=== PATIENT | male | born 1985 | race Asian ===

== ENCOUNTER 2024-03-25 01:10 | Inpatient (IN) | payer MEDICAID ==
[~2024-03-25] VITALS: Ht 162.6 cm; Wt 77.1 kg
[2024-03-25 02:53] LABS: BASOPHILS # (AUTO) 0.1 K/uL (0.0-0.2); BASOPHILS % (AUTO) 0.8 % (0.0-2.0); EOSINOPHILS # (AUTO) 0.2 K/uL (0.0-0.7); EOSINOPHILS % (AUTO) 2.4 % (0.0-6.0); HEMATOCRIT 49 % (39-51); HEMOGLOBIN 16.5 g/dL (13.5-17.5); LYMPHOCYTES # (AUTO) 2.1 K/uL (0.8-4.8); LYMPHOCYTES % (AUTO) 23.1 % (20.0-44.0); MEAN CORPUSCULAR HEMOGLOBIN 31 PG (26.0-33.0); MEAN CORPUSCULAR HGB CONC 34 g/dl (31.0-36.0); MEAN CORPUSCULAR VOLUME 90 fL (80-96); MONOCYTES # (AUTO) 0.7 K/uL (0.1-1.30); MONOCYTES % (AUTO) 7.7 % (2.0-12.0); PLATELET COUNT (AUTO) 257 K/uL (150-450); RED CELL DISTRIBUTION WIDTH 13.2 % (11.5-15.0)
[2024-03-25] MEDS ORDERED: IOHEXOL-350 100 ML VIAL IV ONE (03:13)
[2024-03-25] MEDS ORDERED: IV NS 0.9% 250 ML IV ONE (03:13)
[2024-03-25] MEDS ORDERED: CT SWABBABLE VALVE TRANS SET 1 EA INFUS.SET MC ONE (03:13)
[2024-03-25 03:17] LABS: ALANINE AMINOTRANSFERASE 18 U/L (12-78); ALBUMIN 4.2 g/dL (3.4-5.0); ALKALINE PHOSPHATASE 72 U/L (46-116); ASPARTATE AMINOTRANSFERASE 19 U/L (15-37); BILIRUBIN,TOTAL 0.9 mg/dL (0.2-1.0); CARBON DIOXIDE 28 mmol/L (21-32); CHLORIDE 100 mmol/L (98-107); CREATININE 1.2 mg/dL (0.6-1.3); GLUCOSE 121 mg/dL (74-106); POTASSIUM 3.9 mmol/L (3.5-5.1); SODIUM SERUM 140 mmol/L (136-145); TOTAL PROTEIN, SERUM 7.8 g/dL (6.4-8.2); UREA NITROGEN, BLOOD 17 mg/dL (7-18)
[2024-03-25 03:25] LABS: ALCOHOL, BLOOD < 3 mg/dL (0-10)
--- NOTE | 2024-03-25 03:45 | NUR ---
pt returned from [place] via [facility]
--- NOTE | 2024-03-25 03:48 | NUR ---
urine specimen sent to lab
--- NOTE | 2024-03-25 05:13 | NUR ---
RECEIVED REPORT FROM CHELSEA Le
--- NOTE | 2024-03-25 05:15 | NUR ---
REPORT GIVEN TO MECHE WHITEHEAD
--- NOTE | 2024-03-25 05:27 | NUR ---
[facility]
--- NOTE | 2024-03-25 05:27 | NUR ---
RECEIVED PT BROUGHT BY TIFFANI. A/O X4. NO DISTRESS AND DISCOMFORT NOTED. ON ROOM AIR. NO SOB NOTED. IV ACCESS RAC 20G, INTACT. ALL SAFETY PRECAUTIONS IN PLACE: BED LOCKED AND IN LOWEST POSITION, SIDE RAILS UP X3, CALL LIGHT AND TABLE WITHIN REACH. WILL CONTINUE PLAN OF CARE.
[2024-03-25 05:43] VITALS: BP 168/92; TEMP 98.1; O2SAT 99
[2024-03-25] MEDS ORDERED: Z GUARD REMEDY 4 OZ OINT TP PRN (06:00)
[2024-03-25] MEDS ORDERED: ONDANSETRON HCL/PF 4 MG/2 ML VIAL IVP PRN (06:00)
[2024-03-25] MEDS ORDERED: MAGNESIUM HYDROXIDE 30 ML UDC PO PRN (06:00)
[2024-03-25] MEDS ORDERED: MAG HYDROX/AL HYDROX/SIMETH 30 ML UDC PO PRN (06:00)
--- NOTE | 2024-03-25 06:15 | NUR ---
TEXT DR. MERCADO FOR MRI APPROVAL.
--- NOTE | 2024-03-25 06:34 | NUR ---
MRI ON HOLD PER DR. MERCADO , HE WILL LET US KNOW.
--- NOTE | 2024-03-25 06:50 | NUR ---
RN CLOSING NOTE PT IN THE BED. A/O X4. NO DISTRESS AND DISCOMFORT NOTED. ON ROOM AIR. NO SOB NOTED. IV ACCESS RAC 20G, INTACT. PT IS AMBULATORY. BED LOCKED AND IN LOWEST POSITION, SIDE RAILS UP X3, CALL LIGHT AND TABLE WITHIN REACH. WILL ENDORSE TO NEXT SHIFT NURSE FOR JONG.
--- NOTE | 2024-03-25 07:20 | NUR ---
SKOOG OPERATOR OPENING NOTES Received pt awake in bed. AOX4 with no complaints of pain or discomfort at this time. No slurring of the speech noted at this time. Extremities are within normal limits. Facial muscles are symmetric with no drooping noted. Eyes are tracking with the right eye unable to look over to the right side. Pt is on room air and tolerating it well. IV access on RAC 20G patent and intact saline lock. HOB elevated to pts comfort. Siderails up at all times x2. Bed locked and at its lowest height for safety. Call light within reach. Care is on Addendum: 03/25/24 at 0807 by BURTON ZAPIEN LVN error in charting. *Care is ongoing.
[2024-03-25 07:21] LABS: APPEARANCE,URINE CLEAR (CLEAR); BILIRUBIN,URINE NEGATIVE (NEGATIVE); BLOOD, URINE NEGATIVE Ery/uL (NEGATIVE); COLOR,URINE YELLOW (YELLOW); KETONES,URINE NEGATIVE (NEGATIVE); LEUKOCYTE ESTERASE ,URINE NEGATIVE (NEGATIVE); NITRITE, URINE NEGATIVE (NEGATIVE); PROTEIN,URINE NEGATIVE (NEGATIVE); UGLUCOSE NEGATIVE (NEGATIVE); UROBILINOGEN,URINE 0.2 EU/dL (0.2)
[2024-03-25 07:26] LABS: BASOPHILS # (AUTO) 0.1 K/uL (0.0-0.2); EOSINOPHILS # (AUTO) 0.1 K/uL (0.0-0.7); EOSINOPHILS % (AUTO) 1.7 % (0.0-6.0); HEMATOCRIT 46 % (39-51); HEMOGLOBIN 15.8 g/dL (13.5-17.5); LYMPHOCYTES # (AUTO) 1.3 K/uL (0.8-4.8); LYMPHOCYTES % (AUTO) 17.2 % (20.0-44.0); MEAN CORPUSCULAR HEMOGLOBIN 31 PG (26.0-33.0); MEAN CORPUSCULAR HGB CONC 34 g/dl (31.0-36.0); MEAN CORPUSCULAR VOLUME 89 fL (80-96); MONOCYTES # (AUTO) 0.6 K/uL (0.1-1.30); MONOCYTES % (AUTO) 7.7 % (2.0-12.0); NEUTROPHILS # (AUTO) 5.6 K/uL (1.8-8.9); NEUTROPHILS % (AUTO) 72.4 % (43.0-81.0); PLATELET COUNT (AUTO) 227 K/uL (150-450); RED BLOOD CELL COUNT(AUTO) 5.19 MIL/uL (4.5-6.0); RED CELL DISTRIBUTION WIDTH 13.1 % (11.5-15.0); WHITE BLOOD COUNT (AUTO) 7.8 K/uL (4.3-11.0)
[2024-03-25 08:00] VITALS: BP 119/77; TEMP 97.6; O2SAT 95
[2024-03-25 08:03] LABS: CALCIUM, SERUM 9.4 mg/dL (8.5-10.1); CREATININE 0.9 mg/dL (0.6-1.3); MAGNESIUM 2.1 mg/dL (1.8-2.4); POTASSIUM 3.9 mmol/L (3.5-5.1)
[2024-03-25] MEDS: ASPIRIN 81 MG TAB.CHEW PO SCH (08:19)
[2024-03-25] MEDS: CLOPIDOGREL BISULFATE 75 MG TABLET PO SCH (08:19)
[2024-03-25] MEDS: PANTOPRAZOLE 40 MG TABLET.DR PO SCH (08:19)
[2024-03-25 08:34] LABS: AMPHETAMINE, URINE NEGATIVE (NEGATIVE); BARBITURATE, URINE NEGATIVE (NEGATIVE); BENZODIAZEPINE, URINE NEGATIVE (NEGATIVE); CANNABINOID, URINE NEGATIVE (NEGATIVE); COCCAINE, URINE NEGATIVE (NEGATIVE); OPIATE, URINE NEGATIVE (NEGATIVE)
--- NOTE | 2024-03-25 08:35 | NUR ---
VICE INVESTIGATOR NOTES Nursing swallow eval done at bedside with HOB elevated to 90 degrees. Patient able to swallow with no trouble. Awaiting official swallow eval from speech therapist.
--- NOTE | 2024-03-25 08:37 | NUR ---
BRAKE REPAIRER RAILROAD NOTES Tolerated swallowing the medication and consumed breakfast without any issue.
[2024-03-25 08:45] LABS: PHENCYCLIDINE SCREEN,URINE NEGATIVE (NEGATIVE)
[2024-03-25 12:00] VITALS: BP 123/79; TEMP 98.2; O2SAT 98
[2024-03-25 12:09] LABS: THYROID STIMULATING HORMONE 3.63 uIU/mL (0.358-3.74)
--- NOTE | 2024-03-25 12:12 | NUR ---
PSYCHOLOGIST NOTES No VTE prophylaxis, score 0.
[2024-03-25] MEDS: LORAZEPAM 1 MG TABLET PO ONE (13:30)
[2024-03-25] MEDS ORDERED: GADOTERATE MEGLUMINE 10 MMOL/20 ML VIAL IV ONE (14:34)
[2024-03-25 16:00] VITALS: BP 138/80; TEMP 97.9; O2SAT 98
--- NOTE | 2024-03-25 18:40 | NUR ---
STAFFING DIRECTOR CLOSING NOTES All due meds and tx given as ordered. Pt tolerated everything well. All needs attended to. HOB elevated to pts comfort. Siderails up at all times x3. Bed locked and at its lowest height for safety. Called light within reach. Will endorse to oncoming nurse.
--- NOTE | 2024-03-25 19:00 | NUR ---
HAND METHOD LASTING MACHINE OPERATOR NOTES MRI results relayed to Simba Calderon NP. Made him aware that patient family at bedside and stated patient had a fall last week from a 7 foot high machine and landed on his butt. New order for STAT CT of cervical spine. Noted and carried out.
--- NOTE | 2024-03-25 19:45 | NUR ---
RN OPENING NOTES RECEIVED PT IN BED, AWAKE, ALERT/ORIENTED X4 AND VERBALLY RESPONSIVE. FAMILY AT BEDSIDE. ON ROOM AIR AND PT TOLERATED WELL. CARDIAC MONITORING SHOWS SINUS RHYTHM, HR OF 95. IV ACCESS ON RAC#20G INTACT AND PATENT. NO S/S OF INFILTRATIONS. NO C/O PAIN OR DISCOMFORT. NO ACUTE DISTRESS. PT HAS BLACK PATCH ON HIS RIGHT EYE. ABLE TO MOVE ALL THE EXTREMITIES. ALL SAFETY MEASURES IN PLACE. BED IN LOWEST POSITION AND LOCKED, SIDE RAILS UP X2, PLACE CALL LIGHT WITH IN REACH. WILL CONTINUE TO MONITOR
[2024-03-25 20:00] VITALS: BP 136/93; TEMP 98.6; O2SAT 98
--- NOTE | 2024-03-25 20:18 | NUR ---
RN NOTES: TOOK PT TO CT FOR CT OF THE SPINE AND BROUGHT THE PT BACK
[2024-03-25] MEDS: ATORVASTATIN 40 MG TABLET PO SCH (22:17)
[2024-03-26] VITALS: BP 125/85; TEMP 98.8; O2SAT 94
[2024-03-26 04:00] VITALS: BP 133/97; TEMP 97.3; O2SAT 98
--- NOTE | 2024-03-26 06:40 | NUR ---
RN CLOSING NOTES PT IN BED, SLEEPING BUT EASILY AROUSABLE, ALERT/ORIENTED X4 AND VERBALLY RESPONSIVE. ON ROOM AIR AND PT TOLERATED WELL. O2 SAT 98%. IV ACCESS ON RAC#20G INTACT AND PATENT. NO S/S OF INFILTRATIONS. NO C/O PAIN OR DISCOMFORT. NO ACUTE DISTRESS. PT HAS A BLACK PATCH ON HIS RIGHT EYE, ABLE TO OPEN BOTH EYES BUT RT EYE SLOWLY. ABLE TO MOVE ALL THE EXTREMITIES. ALL DUE MEDS GIVEN ORDERED. ALL SAFETY MEASURES IN PLACE. BED IN LOWEST POSITION AND LOCKED, SIDE RAILS UP X2, PLACE CALL LIGHT WITH IN REACH. WILL ENDORSE TO MORNING SHIFT NURSE.
--- NOTE | 2024-03-26 07:35 | NUR ---
RN OPENING NOTES RECEIVED PT IN BED, AWAKE, ALERT/ORIENTED X4 AND VERBALLY RESPONSIVE. PT ON GLASSINE MACHINE TENDER SHOWS SINUS RHYTHM, HR 90s. PT ON ROOM AIR TOLERATES WELL. IV ACCESS ON RAC#20G INTACT AND PATENT. NO S/S OF INFILTRATIONS. NO PAIN OR DISCOMFORT NOTED AST TIME, NO ACUTE DISTRESS. PT HAS BLACK PATCH ON HIS RIGHT EYE. ABLE TO AMBULATE. ALL SAFETY MEASURES IN PLACE. BED IN LOWEST POSITION AND LOCKED, SIDE RAILS UP X2, PLACE CALL LIGHT WITH IN REACH. WILL CONTINUE PLAN OF CARE.
[2024-03-26 08:00] VITALS: BP 141/96; TEMP 98.1; O2SAT 98
[2024-03-26 12:00] VITALS: BP 152/98; TEMP 97.9; O2SAT 95
[2024-03-26 12:07] LABS: FOLIC ACID 11.9 ng/mL (>3.0)
--- NOTE | 2024-03-26 12:15 | NUR ---
RN NOTES GOLDY FARLEY AND COMBINATION PRESSER JO PEARSON AT BED SIDE FOR LUMBAR PUNCTURE, CONSENT SIGNED BY THE PT, EDUCATION GIVEN BY GOLDY FARLEY. GOLDY FARLEY COMPLETED LUMBAR PUNCTURE, CC/F SENT TO LAB. PT STABLE. WILL CONTINUE TO MONITOR.
--- NOTE | 2024-03-26 13:38 | NUR ---
RN NOTES PT BP 152/98 HR 95 DNP MIGUELITO NOTIFIED, NO NEW ORDER AT THIS TIME.
[2024-03-26 16:00] VITALS: BP 145/88; TEMP 98.8; O2SAT 98
--- NOTE | 2024-03-26 19:35 | NUR ---
RN CLOSING NOTE PT IN BED, AWAKE, ALERT/ORIENTED X4 AND VERBALLY RESPONSIVE. PT ON PALLIATIVE NURSE SHOWS SINUS RHYTHM, HR 90s. PT ON ROOM AIR TOLERATES WELL. IV ACCESS ON RAC#20G INTACT AND PATENT. NO S/S OF INFILTRATIONS. NO PAIN OR DISCOMFORT NOTED AT TIME, NO ACUTE DISTRESS. PT HAS BLACK PATCH ON HIS RIGHT EYE. ABLE TO AMBULATE. ALL SAFETY MEASURES IN PLACE. BED IN LOWEST POSITION AND LOCKED, SIDE RAILS UP X2, PLACE CALL LIGHT WITH IN REACH.
--- NOTE | 2024-03-26 20:00 | NUR ---
QUALITY REVIEW TRAINER NOTE PT IN BED SITTING UP, A/O X 4, NO SOB, NO DISTRESS OR DISCOMFORT NOTED. DENIES PAIN. PER PT HE IS FEELING TINGLING SENSATION IN BILATERAL HANDS AND FEET. ALSO PT SHOWED RT EYE WITH VERY SLUGGISH MOVEMENT WITH NO VISION AND ALSO HIS SPEECH CHANGE WHEN MOVING HIS HEAD BACK N FORTH. PER PT NEUROLOGIST IS AWARE OF THESE SYMPTOMS. RAC #20 G SL INTACT AND PATENT. VSS. CALL LIGHT WITHIN REACH. SIDE RAILS UP X 2 AND CALL LIGHT WITHIN REACH. FAMILY AT BED SIDE. CONTINUE TO MONITOR HIM.
--- NOTE | 2024-03-26 21:00 | NUR ---
BITUMINOUS DISTRIBUTOR OPERATOR NOTE PRAKASH FARLEY CALLED AND ASKED FOR CSF RESULT. INFORMED HIM THAT PER LAB SPECIMEN SENT OUT AND WILL RECEIVE RESULT IN 3 DAYS.
[2024-03-26 21:15] LABS: CSF APPEARANCE CLEAR (CLEAR); CSF COLOR COLORLESS (COLORLESS); CSF VOLUME 13.5 mL; CSF WHITE BLOOD CELL COUNT 0 /cumm (0-5); CSF WHITE BLOOD CELL COUNT 1 /cumm (0-5)
[2024-03-26 21:53] LABS: CSF GLUCOSE 78 mg/dL (40-70); CSF PROTEIN 55.1 mg/dL (15-45)
[2024-03-26 22:00] VITALS: BP 160/92; TEMP 97.9; O2SAT 98
[2024-03-27] VITALS: BP 135/92; TEMP 97.6; O2SAT 98
[2024-03-27 04:00] VITALS: BP 119/71; TEMP 98.1; O2SAT 98
--- NOTE | 2024-03-27 06:24 | NUR ---
RAKER BUFFING WHEEL NOTE PT IN BED ASLEEP, AROUSABLE. NO DISTRESS OR DISCOMFORT NOTED. NO S/S OF PAIN. ON TELE SR. KEPT PT DRY AND CLEAN. ALL NEEDS ATTENDED. SIDE RAILS UP X 3 AND CALL LIGHT WITHIN REACH. WILL ENDORSE TO DAY SHIFT NURSE FOR CONTINUE TO CARE.
--- NOTE | 2024-03-27 07:20 | NUR ---
RN OPENING NOTES RECEIVED PT IN BED, AWAKE, ALERT/ORIENTED X4 AND VERBALLY RESPONSIVE.PT STILL FEELS SENSATION IN HIS HANDS ON FEET. PT ON ENVIRONMENTAL SERVICES TECH SHOWS SINUS RHYTHM. PT ON ROOM AIR TOLERATES WELL. IV ACCESS ON RAC#20G INTACT AND PATENT. NO S/S OF INFILTRATIONS. NO PAIN OR DISCOMFORT NOTED AST TIME, NO ACUTE DISTRESS. PT HAS PATCH ON HIS RIGHT EYE. ABLE TO AMBULATE. ALL SAFETY MEASURES IN PLACE. BED IN LOW POSITION AND LOCKED, SIDE RAILS UP X2, PLACE CALL LIGHT WITH IN REACH. WILL CONTINUE PLAN OF CARE.
[2024-03-27 08:00] VITALS: BP 144/98; TEMP 98.1; O2SAT 98
[2024-03-27 08:09] LABS: *ANA ANTI-CENTROMERE B AB <0.2 AI (0.0-0.9); *ANA ANTI-DNA(DS) AB, QN <1 IU/mL (0-9); *ANA ANTI-JO-1 <0.2 AI (0.0-0.9); *ANA ANTICHROMATIN ANTIBODY <0.2 AI (0.0-0.9); *ANA RNP ANTIBODIES <0.2 AI (0.0-0.9); *ANA SJOGREN'S ANTI-SS-A <0.2 AI (0.0-0.9); *ANA SJOGREN'S ANTI-SS-B <0.2 AI (0.0-0.9); *ANAANTI-SCLERODERMA-70 AB <0.2 AI (0.0-0.9); *ANASMITH AB <0.2 AI (0.0-0.9)
[2024-03-27 12:00] VITALS: BP 134/88; TEMP 97.9; O2SAT 100
[2024-03-27 16:00] VITALS: BP 139/85; TEMP 98.1; O2SAT 98
--- NOTE | 2024-03-27 16:20 | NUR ---
RN NOTES LEFT ARM ULTRASOUND PERFORMED TO IDENTIFY ADEQUATE VEIN FOR MIDLINE INSERTION. LEFT ARM PREPPED USING STERILE TECHNIQUE. POWERGLIDE 18G/10CM WAS INSERTED AT LEFT BASILIC VEIN WITH EASE, GOOD NON PULSATILE BLOOD RETURN AND SECURED WITH INTERLOCK DEVICE. DRESSED USING NORMAL STERILE FASHION. EACH PORT WAS ASPIRATED WITH VENOUS BLOOD AND EACH PORT WAS FLUSHED WITH 10ML OF NORMAL SALINE. PROCEDURE WELL TOLERATED BY THE PT. SUPERVISED BY DR.EM ACOSTA PhD. ENDORSED TO BEDSIDE MECHE CAMPUZANO
[2024-03-27] MEDS ORDERED: diphenhydrAMINE HCL 25 MG CAPSULE PO SCH (18:00)
[2024-03-27] MEDS ORDERED: dexAMETHasone 4 MG TABLET PO SCH (18:00)
[2024-03-27] MEDS ORDERED: ACETAMINOPHEN 325 MG TABLET PO SCH (18:00)
[2024-03-27] MEDS: dexAMETHasone 4 MG TABLET PO SCH (18:04)
[2024-03-27] MEDS: diphenhydrAMINE HCL 25 MG CAPSULE PO SCH (18:04)
[2024-03-27] MEDS: ACETAMINOPHEN 325 MG TABLET PO SCH (18:04)
[2024-03-27] MEDS: IGA AVG IV SCH (18:25)
[2024-03-27] MEDS: IMMUNE GLOBUL IV SCH (18:25)
[2024-03-27] MEDS: GLY IV SCH (18:25)
--- NOTE | 2024-03-27 19:20 | NUR ---
ORGAN BUILDER OPENING NOTE RECEIVED PT IN BED, A/O X 4, RELATIVE AT BEDSIDE. ON ROOM AIR, TOLERATING WELL. NO SIGNS OF DISTRESS NOTED. ON TELE MONITOR CURRENTLY SHOWING SINUS RHYTHM, HR 90s. WITH LEFT UPPER ARM MIDLINE. WITH IV ACCESS ON RIGHT AC G#20. SAFETY MEASURES IMPLEMENTED: BED LOCKED AND IN LOWEST POSITION, BED ALARM ON, SIDE RAILS UP, CALL LIGHT AND TABLE WITHIN EASY REACH, WILL CONTINUE PLAN OF CARE.
[2024-03-27] MEDS: IV NS 0.9% 1,000 ML IV PRN (19:40)
--- NOTE | 2024-03-27 19:40 | NUR ---
RN CLOSING NOTE PT IN BED, AWAKE, ALERT/ORIENTED X4 AND VERBALLY RESPONSIVE. PT ON WASTE MINIMIZATION TECHNICIAN SHOWS SINUS RHYTHM, HR 90s. PT ON ROOM AIR TOLERATES WELL. IV ACCESS ON RAC#20G INTACT AND PATENT. NO S/S OF INFILTRATIONS. NO PAIN OR DISCOMFORT NOTED AT TIME, NO ACUTE DISTRESS. PT HAS BLACK PATCH ON HIS RIGHT EYE. ABLE TO AMBULATE. ALL SAFETY MEASURES IN PLACE. BED IN LOWEST POSITION AND LOCKED, SIDE RAILS UP X2, PLACE CALL LIGHT WITH IN REACH.
[2024-03-27 20:00] VITALS: BP 149/96; TEMP 97.8; O2SAT 98
[2024-03-27] MEDS: ACETAMINOPHEN 325 MG TABLET PO PRN (22:10)
[2024-03-28] VITALS: BP 108/56; TEMP 98.1; O2SAT 98
[2024-03-28 04:00] VITALS: BP 136/73; TEMP 97.8; O2SAT 97
--- NOTE | 2024-03-28 06:46 | NUR ---
CONSUMER SAFETY INSPECTOR CLOSING NOTE PT IN BED, A/O X 4. ON ROOM AIR, TOLERATING WELL. NO SIGNS OF DISTRESS NOTED. ON TELE MONITOR CURRENTLY SHOWING SINUS RHYTHM, HR 80s. WITH LEFT UPPER ARM MIDLINE. WITH IV ACCESS ON RIGHT AC G#20, RUNNING 0.9%NS AT 100ML/HR. DUE MED GIVEN ORDERED. SAFETY MEASURES MAINTAINED: BED LOCKED AND IN LOWEST POSITION, BED ALARM ON, SIDE RAILS UP, CALL LIGHT AND TABLE WITHIN EASY REACH, WILL ENDORSE TO AM SHIFT NURSE FOR JONG.
[2024-03-28 08:00] VITALS: BP 135/80; TEMP 97.4; O2SAT 97
--- NOTE | 2024-03-28 09:30 | NUR ---
RN NOTES DUE MEDS GIVEN
--- NOTE | 2024-03-28 09:30 | NUR ---
AIR TRAFFIC SYSTEMS TECHNICIAN AM NOTES PT IN BED, A/O X 4, RELATIVE AT BEDSIDE. ON ROOM AIR, TOLERATING WELL. NO SIGNS OF DISTRESS NOTED.RESPIRATION UNLABORED. SINUS RHYTHM, HR 86 ON MONITOR.DENIES CHEST PAIN / DISCOMFORT. IV ACCESS ON RIGHT AC G#20 AND CLIFF MIDLINE WITH NS AT 100 ML/HR INFUSING WELL. BOTH SITES CLEAR. SKIN INTACT. REGULAR DIET. SAFETY MEASURES IMPLEMENTED: BED LOCKED AND IN LOWEST POSITION, BED ALARM ON, SIDE RAILS UP, CALL LIGHT AND TABLE WITHIN EASY REACH, WILL CONTINUE PLAN OF CARE.
[2024-03-28 12:00] VITALS: BP 143/88; TEMP 98.4; O2SAT 94
[2024-03-28 14:07] LABS: *HSV 1 DNA PCR CSF Negative (Negative); *HSV 2 DNA PCR CSF Negative (Negative)
[2024-03-28 16:00] VITALS: BP 158/85; TEMP 98.2; O2SAT 97
--- NOTE | 2024-03-28 18:24 | NUR ---
RN NOTES GAMUNEX C STARTED BOTTLE # 1 AT 18ML/HR FOR 1 HOURS PREMEDICATIONS TYLLENOL, BENADRYL AND DEXAMETHASONE ADMINISTERED SCHEDULED
--- NOTE | 2024-03-28 19:20 | NUR ---
RN NOTES ALL NEEDS MET. ASSISTED WITH PM CARE. GAMUNEX C 18 ML/HR ONGOING. ENDORSED TO NEXT SHIFT FOR JONG.
[2024-03-28 20:00] VITALS: BP 143/92; TEMP 97.9; O2SAT 97
--- NOTE | 2024-03-28 20:00 | NUR ---
DEPOSIT CLERK AM NOTES RECEIVED PT IN BED, A/O X 4, FAMILY AT BEDSIDE. ON ROOM AIR, TOLERATING WELL. NO SIGNS OF DISTRESS NOTED.RESPIRATION UNLABORED. SINUS RHYTHM, HR 86 ON MONITOR.DENIES CHEST PAIN / DISCOMFORT. IV ACCESS ON RIGHT AC G#20 AND CLIFF MIDLINE WITH NS AT 100 ML/HR INFUSING WELL. BOTH SITES CLEAR.DUE MEDS GIVEN ORDERED NO ASE NOTED. SKIN INTACT. REGULAR DIET. SAFETY MEASURES IMPLEMENTED: BED LOCKED AND IN LOWEST POSITION, BED ALARM ON, SIDE RAILS UP, CALL LIGHT AND TABLE WITHIN EASY REACH, WILL CONTINUE PLAN OF CARE.
[2024-03-29] VITALS: BP 146/91; TEMP 97.9; O2SAT 96
[2024-03-29 04:00] VITALS: BP 149/92; TEMP 97.3; O2SAT 97
--- NOTE | 2024-03-29 06:44 | NUR ---
glove turner closing notes Pts remain in bed a/o x4 on r/a on tele monitor sr hr 69, no sob no distress noted. continue on iv ns at 10cc/hr.will endorse to rn day shift for continuity of care
--- NOTE | 2024-03-29 07:30 | NUR ---
RESERVATION CLERK AM NOTES PT IN BED, A/O X 4, RELATIVE AT BEDSIDE. ON ROOM AIR, TOLERATING WELL. NO SIGNS OF DISTRESS, RESPIRATION UNLABORED. SINUS RHYTHM, HR 86 ON MONITOR.DENIES CHEST PAIN / DISCOMFORT. IV ACCESS ON RIGHT AC G#20 AND CLIFF MIDLINE WITH NS AT 100 ML/HR INFUSING WELL. BOTH SITES CLEAR. SKIN INTACT. REGULAR DIET. SAFETY MEASURES IMPLEMENTED: BED LOCKED AND IN LOWEST POSITION, BED ALARM ON, SIDE RAILS UP, CALL LIGHT AND TABLE WITHIN EASY REACH, WILL CONTINUE PLAN OF CARE.
[2024-03-29 08:00] VITALS: BP 136/90; TEMP 97.3; O2SAT 98
--- NOTE | 2024-03-29 09:30 | NUR ---
RN OTES DUE MEDS GIVEN
[2024-03-29 12:00] VITALS: BP 102/57; TEMP 97.5; O2SAT 97
[2024-03-29 16:00] VITALS: BP 121/65; TEMP 98.3; O2SAT 96
--- NOTE | 2024-03-29 19:01 | NUR ---
RN NOTES ALL NEEDS MET. ASSISTED WITH PM CARE. GAMUNEX C 18 ML/HR ONGOING. ENDORSED TO NEXT SHIFT FOR JONG.
--- NOTE | 2024-03-29 19:15 | NUR ---
RN NOTE RECEIVED PT FOR CONTINUITY OF CARE. PATIENT A/OX4 IN NO S/SX OF ACUTE DISTRESS AT THIS TIME; CURRENTLY ON ROOM AIR; WITH 02 SAT >95% AT THIS TIME.WITH IV ACCESS PATENT, INTACT AND FLUSHING WELL. WITH RUNNING NS@100CC/HR. ALSO RECEIVED WITH ONGOING GAMUNEX C INFUSION 1ST BOTTLE OF 3. WILL ENSURE SAFETY MEASURES WITHIN THE SHIFT. PATIENT BED ALARM IS ON. HEAD OF BED ELEVATED. BED IS LOCKED, IN LOWEST POSITION AND SIDE RAILS UP. CALL LIGHT WITHIN REACH OF THE PATIENT. WILL CONTINUE TO MONITOR AND REASSESS FOR ANY CHANGES AND WILL CARRY OUT ANY ONGOING AND ACTIVE MD ORDER.
[2024-03-29 20:00] VITALS: BP 131/78; TEMP 98.4; O2SAT 97
--- NOTE | 2024-03-29 21:09 | NUR ---
RN NOTE SECURED ORDER FROM WENDY GERMAN) SHAMAR 7.5MG HS PRN. WILL CARRY OUT.
[2024-03-29] MEDS: ZOLPIDEM TARTRATE 10 MG TABLET PO PRN (22:24)
[2024-03-30] VITALS: BP 135/81; TEMP 98.2; O2SAT 97
[2024-03-30 04:00] VITALS: BP 120/80; TEMP 98; O2SAT 97
--- NOTE | 2024-03-30 06:35 | NUR ---
RN NOTE PATIENT REMAINS IN ROOM IN NO SIGNS OF RESPIRATORY DISTRESS, PATIENT STILL ON ROOM AIR; TOLERATING WELL SATURATING @ >95% SP02. SR ON MONITOR. SAFETY MEASURES IMPLEMENTED, BED IN LOWEST POSITION, LOCKED, SIDE RAILS UP, CALL LIGHT WITHIN REACH. ALL NEEDS AND ORDERS ADDRESSED DURING THE SHIFT. IV ACCESS MAINTAINED INTACT, SECURED AND FLUSHING WELL. ALL DUE MEDS GIVEN ORDERED & SCHEDULED ; PATIENT TOLERATED WELL. PATIENT KEPT CLEAN AND COMFORTABLE WITHIN THE SHIFT. PATIENT ENDORSED TO INCOMING SHIFT RN WITH STABLE VITAL SIGN AND FOR CONTINUITY OF CARE.
--- NOTE | 2024-03-30 07:05 | NUR ---
RN OPENING NOTES RECEIVED PT IN BED, AWAKE, A/O X4. ON ROOM AIR, TOLERATING WELL. NO S/S OF SOB NOTED AT THIS TIME. OM TELE MONITOR CURRENTLY READING SR, HR 70 BPM. IV ACCESS ON RAC 20G AND CLIFF ML, PATENT AND INTACT, CURRENTLY RUNNING NS @ 100 ML/HR. SAFETY MEASURES IMPLEMENTED, BED IN LOWEST LOCKED POSITION, SIDE RAILS UP X2, CALL LIGHT WITHIN REACH. WILL CONTINUE PLAN OF CARE.
[2024-03-30 08:00] VITALS: BP 154/103; TEMP 97.9; O2SAT 98
[2024-03-30 12:00] VITALS: BP 121/86; TEMP 98.1; O2SAT 94
[2024-03-30 16:00] VITALS: BP 128/73; TEMP 97.5; O2SAT 97
[2024-03-30] MEDS: methylPREDNISolone SOD SUCC 125 MG/2ML VIAL IV ONE (18:07)
--- NOTE | 2024-03-30 18:40 | NUR ---
RN CLOSING NOTES PT IN BED, AWAKE, A/O X4. ON ROOM AIR, SATING 98%, TOLERATING WELL. NO S/S OF SOB NOTED AT THIS TIME. ON TELE MONITOR CURRENTLY READING SR, HR 66 BPM. IV ACCESS ON RAC 20G PATENT AND INTACT, RUNNING NS @ 100 ML/HR AND CLIFF ML, PATENT AND INTACT, CURRENTLY RUNNING IVIG @ 18 ML/HR. SAFETY MEASURES MAINTAINED, BED IN LOWEST LOCKED POSITION, SIDE RAILS UP X2, CALL LIGHT WITHIN REACH. ALL MEDS GIVEN ORDERED, ALL NEEDS ATTENDED TOO. WILL ENDORSE TO ONCOMING SHIFT FOR JONG.
--- NOTE | 2024-03-30 19:20 | NUR ---
RN OPENING NOTE PT RECEIVED IN BED AWAKE AND ALERT IN BED RESTING; CURRENTLY ON ROOM AIR SATURATING AT 97% AND DENIES SOB OR RESPIRATORY DISTRESS. PT HAS IV ACCESS ON THE CLIFF ML CURRENTLY RUNNING IVGI AT 36 ML/ HR WITH NO SIGNS OF ADVERSE EFFECTS. PT IS AMBULATORY AND ABLE TO MAKE NEEDS MET WITH NO COMPLICATIONS. ALL SAFETY MEASURES IN PLACE, BED IS LOCKED, ON THE LOWEST POSITION, WITH CALL LIGHT AND BEDSIDE TABLE WITHIN EASY REACH. PLAN OF CARE ONGOING.
[2024-03-30 20:00] VITALS: BP 136/92; TEMP 97.9; O2SAT 97
[2024-03-31] VITALS: BP 136/80; TEMP 98.1; O2SAT 97
[2024-03-31 04:00] VITALS: BP 124/76; TEMP 98.2; O2SAT 97
[2024-03-31 06:08] LABS: BASOPHILS % (AUTO) 0.1 % (0.0-2.0); HEMATOCRIT 45 % (39-51); HEMOGLOBIN 15.5 g/dL (13.5-17.5); LYMPHOCYTES # (AUTO) 0.9 K/uL (0.8-4.8); LYMPHOCYTES % (AUTO) 7.6 % (20.0-44.0); MEAN CORPUSCULAR HEMOGLOBIN 30 PG (26.0-33.0); MEAN CORPUSCULAR HGB CONC 34 g/dl (31.0-36.0); MEAN CORPUSCULAR VOLUME 88 fL (80-96); MONOCYTES # (AUTO) 0.3 K/uL (0.1-1.30); MONOCYTES % (AUTO) 2.2 % (2.0-12.0); NEUTROPHILS % (AUTO) 90.1 % (43.0-81.0); PLATELET COUNT (AUTO) 214 K/uL (150-450); RED BLOOD CELL COUNT(AUTO) 5.13 MIL/uL (4.5-6.0); RED CELL DISTRIBUTION WIDTH 13.5 % (11.5-15.0); WHITE BLOOD COUNT (AUTO) 12.3 K/uL (4.3-11.0)
[2024-03-31 06:42] LABS: ALBUMIN 3.4 g/dL (3.4-5.0); BILIRUBIN,TOTAL 0.4 mg/dL (0.2-1.0); CALCIUM, SERUM 9.1 mg/dL (8.5-10.1); CREATININE 1.1 mg/dL (0.6-1.3); MAGNESIUM 1.9 mg/dL (1.8-2.4); POTASSIUM 3.8 mmol/L (3.5-5.1); TOTAL PROTEIN, SERUM 8.7 g/dL (6.4-8.2)
--- NOTE | 2024-03-31 07:07 | NUR ---
RN OPENING NOTES RECEIVED PT IN BED, AWAKE, A/O X4. ON ROOM AIR, TOLERATING WELL. NO S/S OF SOB NOTED AT THIS TIME. ON TELE MONITOR CURRENTLY READING SR, HR 77 BPM. IV ACCESS ON RAC 20G AND CLIFF ML, PATENT AND INTACT, CURRENTLY RUNNING NS @ 100 ML/HR. SAFETY MEASURES IMPLEMENTED, BED IN LOWEST LOCKED POSITION, SIDE RAILS UP X2, CALL LIGHT WITHIN REACH. WILL CONTINUE PLAN OF CARE.
--- NOTE | 2024-03-31 07:23 | NUR ---
MECHE PASTE NOTE PT RECEIVED IN BED AWAKE AND ALERT IN BED RESTING; CURRENTLY ON ROOM AIR SATURATING AT 98% AND DENIES SOB OR RESPIRATORY DISTRESS. PT HAS IV ACCESS ON THE CLIFF ML WITH NO SIGNS OF ADVERSE EFFECTS. PT IS AMBULATORY AND ABLE TO MAKE NEEDS MET WITH NO COMPLICATIONS. ALL SAFETY MEASURES IN PLACE, BED IS LOCKED, ON THE LOWEST POSITION, WITH CALL LIGHT AND BEDSIDE TABLE WITHIN EASY REACH. ALL MEDICATIONS GIVEN AND ALL NEEDS MET. WILL GIVE REPORT TO AM NURSE FOR ONGOING CARE. Addendum: 03/31/24 at 0725 by LUBA HESTER RN CLOSING NOTE
[2024-03-31 08:00] VITALS: BP 136/90; TEMP 97.7; O2SAT 95
[2024-03-31] MEDS: predniSONE 20 MG TABLET PO SCH (08:04)
[2024-03-31 11:06] LABS: VDRL, CSF Non Reactive (Non Rea:<1:1)
[2024-03-31 12:00] VITALS: BP 151/96; TEMP 97.7; O2SAT 98
[2024-03-31 16:00] VITALS: BP 141/81; TEMP 97.7; O2SAT 96
--- NOTE | 2024-03-31 18:31 | NUR ---
RN NOTE PT MEDICALLY STABLE FOR D/C HOME PER MD AFTER COMPLETION OF FINAL DOSE OF IVIG TODAY. D/C INSTRUCTIONS GIVEN TO PT. PT VERBALIZES UNDERSTANDING. BELONGINGS LIST CHECKED. IVIG CURRENTLY RUNNING.
--- NOTE | 2024-03-31 18:33 | NUR ---
RN CLOSING NOTES PT IN BED, AWAKE, A/O X4. ABLE TO MAKE NEEDS KNOWN. ON ROOM AIR, SATING 97%, TOLERATING WELL. NO S/S OF SOB NOTED AT THIS TIME. ON TELE MONITOR CURRENTLY READING SR, HR 72 BPM. IV ACCESS ON RAC 20G AND CLIFF ML, PATENT AND INTACT, CURRENTLY RUNNING IVIG @ 36 ML/HR. SAFETY MEASURES MAINTAINED, BED IN LOWEST LOCKED POSITION, SIDE RAILS UP X2, CALL LIGHT WITHIN REACH. ALL MEDS GIVEN ORDERED. ALL NEEDS ATTENDED TOO. WILL ENDORSE TO ONCOMING SHIFT FOR JONG.
--- NOTE | 2024-03-31 19:30 | NUR ---
RN OPENING NOTE PT RECEIVED IN BED AWAKE AND ALERT IN BED RESTING; CURRENTLY ON ROOM AIR SATURATING AT 97% AND DENIES SOB OR RESPIRATORY DISTRESS. PT HAS IV ACCESS ON THE CLIFF ML CURRENTLY RUNNING IVGI AT 36 ML/ HR WITH NO SIGNS OF ADVERSE EFFECTS. PT IS AMBULATORY AND ABLE TO MAKE NEEDS MET WITH NO COMPLICATIONS. ALL SAFETY MEASURES IN PLACE, BED IS LOCKED, ON THE LOWEST POSITION, WITH CALL LIGHT AND BEDSIDE TABLE WITHIN EASY REACH. WILL D/C ONCE IVIG DOSES ARE COMPLETED.
[2024-03-31 20:00] VITALS: BP 145/92; TEMP 97.9; O2SAT 95
--- NOTE | 2024-03-31 22:06 | NUR ---
DIGITAL SALES REPRESENTATIVE NOTE PT DISCHARGED FROM HOSPITAL. ALL LINES REMOVED, WITH ALL BELONGINGS CHECKED WITH BELONGINGS LIST SIGNED BY THE PATIENT. PT COMPLETED IVIG DOSES WITH NO SIDE EFFECTS; PT DENIES SOB OR ANY RESPIRATORY DISTRESS. ALL HS MEDICATIONS GIVEN WITH NO COMPLICATIONS. DISCHARGE FOLDER GIVEN TO PATIENT, PATIENT LEFT WITH SISTER FOR TRANSPORTATION. Addendum: 03/31/24 at 2222 by LUBA HESTER RN VITAL SIGNS CHECKED AND STABLE. TELEMETRY BOX REMOVED; ALL DISCHARGED PAPERWORK SIGNED BY PATIENT. PATIENT DISCHARGED HOME.
== END 2024-03-31 22:06 | disposition home or self-care (01) | DRG 720 ==
LOC: ER 01:25 → TELE1 05:06
PROVIDERS: ADMIT Nurse Practitioner Acute Care
PROC: 009U3ZX Drainage of Spinal Canal, Percutaneous Approach, Diagnostic (ICD-10-PCS; principal; 2024-03-26)
DX: A41.89 Other specified sepsis (principal); J96.01 Acute respiratory failure with hypoxia; J12.82 Pneumonia due to coronavirus disease 2019; G61.0 Guillain-Barre syndrome; U07.1 COVID-19; G93.41 Metabolic encephalopathy; H49.21 Sixth [abducent] nerve palsy, right eye; G35 Multiple sclerosis; E78.5 Hyperlipidemia, unspecified; H53.2 Diplopia; H55.89 Other irregular eye movements; J15.9 Unspecified bacterial pneumonia; E87.20 Acidosis, unspecified; D50.9 Iron deficiency anemia, unspecified; D63.8 Anemia in other chronic diseases classified elsewhere; N17.9 Acute kidney failure, unspecified; E80.6 Other disorders of bilirubin metabolism; I10 Essential (primary) hypertension; Z91.81 History of falling
CPT/HCPCS: 36415; 70450-TC; 70496-TC; 70498-TC; 70553-TC; 72125-TC; 80048-TC; 80053-TC; 80061-TC; 82607-TC; 82945-TC; 82962-TC; 83735-TC; 83921; 84100-TC; 84155-TC; 84425; 84443-TC; 85025-TC; 85652-TC; 86225; 86235; 86592; 89051-TC; 92507-TC; 92521; 92526; 92611-TC; 93307-TC; 97110-TC; 97112-TC; 97116-TC; 97530-TC; A4216; A4223; A9575; G0378; G0480; J1572; J2919; J7030; J7050; J8540; Q0163; Q9967